=== PATIENT | male | born 1985 | race Caucasian/White ===

== ENCOUNTER 2023-03-26 06:13 | Inpatient (IN) | payer OTHER ==
[~2023-03-26] VITALS: Ht 185.4 cm; Wt 124.7 kg
[2023-03-26 07:20] LABS: GLUCOMETER DEV NAME(LOC) SDS.; GLUCOSE,POINT OF CARE 146 MG/DL (70-110)
[2023-03-26] MEDS ORDERED: DIAZEPAM 5 MG TABLET ONE (07:25)
[2023-03-26] MEDS ORDERED: DiphenhydrAMINE HCL 50 MG CAPSULE ONE (07:25)
[2023-03-26] MEDS ORDERED: ASPIRIN 81 MG CHEWABLE TABLET ONE (07:25)
[2023-03-26] MEDS ORDERED: SACU1TAB4 PO (07:45)
[2023-03-26] MEDS ORDERED: DAPA10TA PO (07:45)
[2023-03-26] MEDS ORDERED: METF-1211 PO (07:45)
[2023-03-26] MEDS ORDERED: APIX5TAB PO (07:45)
[2023-03-26] MEDS ORDERED: SPIR-37 PO (07:45)
[2023-03-26] MEDS ORDERED: CARV25 PO (07:49)
[2023-03-26] MEDS: SODIUM CHLORIDE 0.9% 1,000 ML IV SCH (07:55)
[2023-03-26] MEDS ORDERED: SODIUM BICARBONATE 50 MEQ/50 ML VIAL ONE (09:37)
[2023-03-26] MEDS ORDERED: LIDOCAINE/PF 1% 30 ML VIAL ONE (09:37)
[2023-03-26] MEDS ORDERED: IOHEXOL 300 MG/ML 100 ML VIAL ONE (09:37)
[2023-03-26] MEDS ORDERED: HEPARIN SODIUM 1000 UNITS/NS 1,000 ML ONE (09:37)
[2023-03-26] MEDS ORDERED: FentaNYL CITRATE PF 100 MCG/2 ML VIAL ONE (09:52)
[2023-03-26] MEDS ORDERED: MIDAZOLAM HCL 2 MG/2 ML VIAL ONE (09:52)
[2023-03-26] MEDS ORDERED: FentaNYL CITRATE PF 100 MCG/2 ML VIAL IVP ONE (10:15)
[2023-03-26] MEDS ORDERED: MIDAZOLAM HCL 2 MG/2 ML VIAL IVP ONE (10:15)
[2023-03-26] MEDS ORDERED: IOHEXOL 300 MG/ML 100 ML VIAL ICOR ONE (10:15)
[2023-03-26] MEDS ORDERED: HEPARIN SODIUM 1000 UNITS/NS 1,000 ML IARTER ONE (10:15)
[2023-03-26] MEDS ORDERED: LIDOCAINE 1% 30 ML/SOD BICARB 8.4% 4 ML SQ ONE (10:15)
[2023-03-26] MEDS ORDERED: HydrALAZINE HCL 20 MG/ML VIAL ONE (10:45)
[2023-03-26] MEDS ORDERED: HydrALAZINE HCL 20 MG/ML VIAL IVP ONE (11:00)
[2023-03-26] MEDS ORDERED: DIAZEPAM 5 MG TABLET PO ONE (12:00)
[2023-03-26] MEDS ORDERED: ASPIRIN 81 MG CHEWABLE TABLET PO ONE (12:00)
[2023-03-26] MEDS ORDERED: DiphenhydrAMINE HCL 50 MG CAPSULE PO ONE (12:00)
[2023-03-26] MEDS ORDERED: BISACODYL 10 MG RECTAL RECTAL SUPPOSITORY PR PRN (12:45)
[2023-03-26] MEDS ORDERED: ACETAMINOPHEN 325 MG TABLET PO PRN (12:45)
[2023-03-26] MEDS ORDERED: MAGNESIUM HYDROXIDE SUSPENSION 30 ML UDCUP PO PRN (12:45)
[2023-03-26] MEDS ORDERED: MORPHINE SULFATE 2 MG/ML SYRINGE IVP PRN (12:45)
[2023-03-26] MEDS ORDERED: HYDROCODONE/ACETAMINOPHEN 5-325 MG TABLET PO PRN (12:45)
[2023-03-26] MEDS ORDERED: ZOLPIDEM TARTRATE 5 MG TABLET PO PRN (12:45)
[2023-03-26] MEDS ORDERED: ONDANSETRON HCL 4 MG/2 ML VIAL IVP PRN (12:45)
[2023-03-26 14:00] VITALS: BP 140/93
[2023-03-26 14:39] VITALS: BP 140/93
[2023-03-26 15:00] VITALS: BP 135/82
[2023-03-26] MEDS ORDERED: PNEUMOCOCCAL VACCINE POLYVALENT 0.5 ML VIAL [PPSV23] IM. ONE (15:30)
[2023-03-26 16:01] VITALS: BP 128/78
[2023-03-26 17:00] VITALS: BP 130/85
[2023-03-26] MEDS: MetFORMIN HCL 500 MG TABLET PO SCH (18:00)
[2023-03-26 20:03] VITALS: BP 151/91
[2023-03-26] MEDS ORDERED: SACUBITRIL/VALSARTAN 97-103 MG TABLET PO SCH (21:00)
[2023-03-26] MEDS ORDERED: CARVEDILOL 25 MG TABLET PO SCH (21:00)
[2023-03-26] MEDS: CARVEDILOL 25 MG TABLET PO SCH (21:32)
[2023-03-26] MEDS: DOCUSATE SODIUM 100 MG CAPSULE PO SCH (21:32)
[2023-03-26] MEDS: APIXABAN 5 MG TABLET PO SCH (21:32)
[2023-03-27 00:14] VITALS: BP 117/66
[2023-03-27] MEDS: SODIUM CHLORIDE 0.9% 1,000 ML IV SCH (00:42)
[2023-03-27 04:59] VITALS: BP 140/81
[2023-03-27 07:15] VITALS: BP 154/96
[2023-03-27 07:52] LABS: BASOPHILS % (AUTO) 0.6 % (0.0-2.0); EOSINOPHILS % (AUTO) 2.8 % (1.0-6.0); HEMATOCRIT 44.8 % (41-53); HEMOGLOBIN 15.6 g/dL (13.5-17.5); LYMPHOCYTES # (AUTO) 1.5 K/uL (1.0-4.8); LYMPHOCYTES % (AUTO) 20.8 % (22.0-44.0); MEAN CORPUSCULAR HEMOGLOBIN 30.7 pg (26.0-34.0); MEAN CORPUSCULAR HGB CONC 34.7 G/dL (31.0-37.0); MEAN CORPUSCULAR VOLUME 88 fL (80-100); MONOCYTES # (AUTO) 0.5 K/uL (0.1-1.0); MONOCYTES % (AUTO) 6.9 % (2.0-9.0); NEUTROPHILS % (AUTO) 68.9 % (40.0-70.0); PLATELET COUNT (AUTO) 181 K/uL (150-450); RED BLOOD CELL COUNT(AUTO) 5.07 MIL/uL (4.50-5.90); RED CELL DISTRIBUTION WIDTH 13.5 % (11.5-14.5)
[2023-03-27] MEDS: MetFORMIN HCL 500 MG TABLET PO SCH (08:00)
[2023-03-27 08:05] LABS: ANION GAP 4 mmol/L (8-16); CALCIUM, TOTAL 9.1 mg/dL (8.8-10.5); CARBON DIOXIDE 29 mmol/L (22-29); CHLORIDE 103 mmol/L (98-107); CREATININE 0.67 mg/dL (0.60-1.30); GLOMERULAR FILTR. RATE CALC > 60 mL/min (>60); GLUCOSE,RANDOM 141 mg/dL (70-110); POTASSIUM 4.4 mmol/L (3.5-5.1); SODIUM SERUM 136 mmol/L (136-145); UREA NITROGEN, BLOOD 16 mg/dL (7-18)
[2023-03-27] MEDS ORDERED: SACUBITRIL/VALSARTAN 97-103 MG TABLET PO SCH (09:00)
[2023-03-27] MEDS ORDERED: PANTOPRAZOLE SODIUM 40 MG DR TABLET PO SCH (09:00)
[2023-03-27] MEDS: DOCUSATE SODIUM 100 MG CAPSULE PO SCH (09:00)
[2023-03-27] MEDS ORDERED: SPIRONOLACTONE 25 MG TABLET PO SCH (09:00)
[2023-03-27] MEDS ORDERED: DAPAGLIFLOZIN PROPANEDIOL 5 MG TABLET PO SCH (09:00)
[2023-03-27] MEDS: CARVEDILOL 25 MG TABLET PO SCH (09:03)
[2023-03-27] MEDS: APIXABAN 5 MG TABLET PO SCH (09:04)
[2023-03-27 10:58] VITALS: BP 134/74
== END 2023-03-27 13:50 | disposition home or self-care (01) | DRG 192 ==
LOC: 5S 06:13 → EDSEX 09:00 → 5N 14:00
PROVIDERS: ADMIT Internal Medicine Interventional Cardiology; ATTEND Internal Medicine Interventional Cardiology
PROC: 4A023N8 Measurement of Cardiac Sampling and Pressure, Bilateral, Percutaneous Approach (ICD-10-PCS; principal; 2023-03-26)
PROC: B215YZZ Fluoroscopy of Left Heart using Other Contrast (ICD-10-PCS; 2023-03-26)
PROC: B211YZZ Fluoroscopy of Multiple Coronary Arteries using Other Contrast (ICD-10-PCS; 2023-03-26)
PROC: B41FYZZ Fluoroscopy of Right Lower Extremity Arteries using Other Contrast (ICD-10-PCS; 2023-03-26)
DX: I42.0 Dilated cardiomyopathy (principal); I27.20 Pulmonary hypertension, unspecified; I50.22 Chronic systolic (congestive) heart failure; I11.0 Hypertensive heart disease with heart failure; E66.01 Morbid (severe) obesity due to excess calories; E78.5 Hyperlipidemia, unspecified; E11.9 Type 2 diabetes mellitus without complications; Z68.36 Body mass index [BMI] 36.0-36.9, adult; Z79.4 Long term (current) use of insulin
CPT/HCPCS: 80048; 82962; 85025; 93005; 93460; J0360; J1644; J2250; J3010; J3490; J7030; Q9967